=== PATIENT | male | born 2000 | race Caucasian/White ===

== ENCOUNTER 2021-07-14 00:59 | Observation (INO) ==
[2021-07-14 01:41] LABS: Bilirubin,Urine Negative (Negative); Blood,Urine Negative (Negative); Clarity,Urine Clear (Clear); Color,Urine Colorless (Yellow); Glucose,Urine (UA) Normal (Normal); Ketones,Urine Negative (Negative); Leukocyte Esterase,Urine Negative (Negative); Nitrite,Urine Negative (Negative); PH,Urine 6.5 pH Units (5.0-8.0); Protein,Urine Negative (Neg-Trace); Specific Gravity,Urine 1.005 (1.010-1.025); Urobilinogen,Urine Normal (Normal)
[2021-07-14 01:44] LABS: Basophils # 0.1 K/mcL (0.0-0.2); Basophils % 0.7 %; Eosinophils % 0.3 %; Hematocrit 49.6 % (37.5-50.1); Hemoglobin 17.4 g/dL (12.9-16.9); Immature Granulocytes % 0.3 % (0-4); Lymphocytes # 1.8 K/mcL (0.6-4.6); Lymphocytes % 25.7 %; Mean Corpuscular HGB Conc 35.1 g/dL (31.6-35.5); Mean Corpuscular Hemoglobin 30.6 pg (28.0-33.3); Mean Corpuscular Volume 87.2 fL (83.0-100.0); Mean Platelet Volume 9.7 fL (9.4-12.4); Monocytes # 0.4 K/mcL (0.0-1.3); Monocytes % 5.9 %; Neutrophils # 4.6 K/mcL (1.6-8.9); Platelet Count 269 K/mcL (140-400); Red Blood Count 5.69 M/mcL (4.19-5.50); Segmented Neutrophils % 67.1 %; White Blood Count 6.8 K/mcL (4.3-11.1)
[2021-07-14 01:52] LABS: Amphetamine Screen,Urine Negative ng/mL (Cutoff=1000); Barbiturate Screen,Urine Negative ng/mL (Cutoff=200); Benzodiazepines Screen,Urine Negative ng/mL (Cutoff=200); Cannabinoid Screen,Urine Negative ng/mL (Cutoff = 50); Cocaine Screen,Urine Negative ng/mL (Cutoff= 300); Opiate Screen,Urine Negative ng/mL (Cutoff=300); Phencyclidine Screen,Urine Negative ng/mL (Cutoff=25)
[2021-07-14 02:04] LABS: Acetaminophen < 10 mcg/mL (10-20); Alanine Aminotransferase 16 Units/L (7-52); Albumin 5.3 g/dL (3.5-5.7); Albumin/Globulin Ratio 2.1 (1.1-2.2); Alkaline Phosphatase 102 Units/L (34-104); Aspartate Amino Transferase 19 Units/L (13-39); BUN/Creatinine Ratio 8 (6-26); Bilirubin,Direct 0.1 mg/dL (0.0-0.2); Bilirubin,Indirect 0.6 mg/dL (0.0-1.0); Bilirubin,Total 0.7 mg/dL (0.3-1.0); Blood Urea Nitrogen 9 mg/dL (6-20); Calcium 10.1 mg/dL (8.6-10.3); Carbon Dioxide 29 mEq/L (23-29); Chloride 104 mEq/L (98-107); Chol/HDL Ratio 2.1 (0-4.9); Cholesterol 127 mg/dL (< 200); Ethanol 157 mg/dL (Less than 10); Globulin 2.5 g/dL (2.4-3.5); Glucose 96 mg/dL (70-105); HDL Cholesterol 60 mg/dL (40-59); LDL Cholesterol,Calculated 53 mg/dL (< 100); Osmolality,Calculated 291 (280-300); Salicylate < 2.5 mg/dL (15.0-30.0); Sodium 141 mEq/L (136-145); Total Protein 7.8 g/dL (6.4-8.9); Triglycerides 69 mg/dL (< 150); eGFR For African Americans > 60 (> 60); eGFR For Non-African Americans > 60 (> 60)
[2021-07-14 08:09] LABS: Influenza A PCR Negative (Negative); Influenza B PCR Negative (Negative); Resp. Syncytial Virus PCR Negative (Negative)
[2021-07-14 08:45] LABS: SARS-CoV-2 by PCR (In House) Negative (Negative)
[2021-07-14] MEDS ORDERED: Naloxone 0.4 MG/ML INJ IVP PRN (11:18)
[2021-07-14] MEDS ORDERED: Ondansetron 4 MG/2 ML VIAL IVP PRN (11:18)
[2021-07-14] MEDS ORDERED: *HR* LORazepam 2 MG/ML VIAL IVP PRN ×3 (11:26)
[2021-07-14] MEDS: Folic Acid 1 MG TABLET PO SCH (14:40)
[2021-07-14] MEDS: Thiamine (B-1) 100 MG TABLET PO SCH (14:40)
[2021-07-14] MEDS: Vitamin B Complex/Vit C/Vit E 1 EACH TABLET PO SCH (14:40)
[2021-07-14] MEDS: Nicotine 14 MG PATCH.TD24 TD SCH (19:08)
[2021-07-15 02:04] LABS: Basophils % 0.5 %; Eosinophils # 0.1 K/mcL (0.0-0.6); Eosinophils % 0.7 %; Hematocrit 46.4 % (37.5-50.1); Immature Granulocytes % 0.3 % (0-4); Lymphocytes % 26.7 %; Mean Corpuscular HGB Conc 34.5 g/dL (31.6-35.5); Mean Corpuscular Hemoglobin 30.2 pg (28.0-33.3); Mean Corpuscular Volume 87.5 fL (83.0-100.0); Monocytes # 0.7 K/mcL (0.0-1.3); Monocytes % 9.2 %; Neutrophils # 4.8 K/mcL (1.6-8.9); Platelet Count 251 K/mcL (140-400); Red Cell Distribution Width 13.1 % (11.5-14.5); Segmented Neutrophils % 62.6 %; White Blood Count 7.6 K/mcL (4.3-11.1)
[2021-07-15 02:22] LABS: BUN/Creatinine Ratio 12 (6-26); Blood Urea Nitrogen 14 mg/dL (6-20); Calcium 9.8 mg/dL (8.6-10.3); Carbon Dioxide 27 mEq/L (23-29); Chloride 104 mEq/L (98-107); Glucose 94 mg/dL (70-105); Osmolality,Calculated 290 (280-300); Potassium 3.7 mEq/L (3.5-5.1); Sodium 140 mEq/L (136-145); eGFR For African Americans > 60 (> 60); eGFR For Non-African Americans > 60 (> 60)
[2021-07-15] MEDS: Folic Acid 1 MG TABLET PO SCH (08:56)
[2021-07-15] MEDS: Thiamine (B-1) 100 MG TABLET PO SCH (08:56)
[2021-07-15] MEDS: Vitamin B Complex/Vit C/Vit E 1 EACH TABLET PO SCH (08:56)
[2021-07-15] MEDS: Nicotine 14 MG PATCH.TD24 TD SCH ×2 (08:56→21:53)
[2021-07-15 10:54] LABS: Estimated Average Glucose 105 mg/dl; Hemoglobin A1C 5.3 %
[2021-07-16 06:51] VITALS: BP 111/66; PULSE 58; TEMP 97.9; O2SAT 97
[2021-07-16] MEDS: Vitamin B Complex/Vit C/Vit E 1 EACH TABLET PO SCH (07:44)
[2021-07-16] MEDS: Folic Acid 1 MG TABLET PO SCH (07:45)
[2021-07-16] MEDS: Nicotine 14 MG PATCH.TD24 TD SCH (07:45)
[2021-07-16] MEDS: Thiamine (B-1) 100 MG TABLET PO SCH (07:45)
== END 2021-07-16 14:21 ==
LOC: 3BNU 00:59 → EMEROOARM 00:59 → SUATTDRO 12:35 → 3BNU 14:03
PROVIDERS: ADMIT Family Medicine; ATTEND Internal Medicine

== ENCOUNTER 2021-07-16 14:23 | Observation (INO) ==
[2021-07-16] MEDS ORDERED: MOM Conc 10 ML UD.LIQ PO PRN (15:23)
[2021-07-16] MEDS ORDERED: *HR* LORazepam 1 MG TABLET PO PRN (15:23)
[2021-07-16] MEDS ORDERED: traZODone 50 MG TABLET PO PRN (15:23)
[2021-07-16] MEDS ORDERED: Haloperidol Lactate 5 MG/ML VIAL IM PRN (15:23)
[2021-07-16] MEDS ORDERED: Mag Hydrox/Al Hydrox/Simeth 30 ML UDC PO PRN (15:23)
[2021-07-16] MEDS ORDERED: Ibuprofen 400 MG TABLET PO PRN (15:23)
[2021-07-16] MEDS ORDERED: *HR* LORazepam 2 MG/ML VIAL IM PRN (15:23)
[2021-07-16] MEDS ORDERED: haloperidoL 5 MG TABLET PO PRN (15:23)
[2021-07-16] MEDS ORDERED: hydrOXYzine pamoate 25 MG CAPSULE PO PRN (15:23)
[2021-07-16] MEDS: Nicotine 21 MG PATCH.TD24 TD SCH (15:51)
[2021-07-16 21:02] VITALS: O2SAT 100
[2021-07-17] MEDS: Nicotine 21 MG PATCH.TD24 TD SCH (08:54)
[2021-07-17 08:55] VITALS: BP 124/73; PULSE 100; TEMP 97.7
[2021-07-17] MEDS ORDERED: Folic Acid 1 MG TABLET PO SCH (09:00)
[2021-07-17] MEDS ORDERED: Thiamine (B-1) 100 MG TABLET PO SCH (09:00)
[2021-07-17] MEDS ORDERED: Vitamin B Complex/Vit C/Vit E 1 EACH TABLET PO SCH (09:00)
== END 2021-07-17 14:55 | disposition home or self-care (01) ==
LOC: 1ANU 14:23 → INTOOBSV 07-17 12:50
PROVIDERS: ADMIT Psychiatry & Neurology Psychiatry; ATTEND Psychiatry & Neurology Psychiatry